=== PATIENT | female | born 1990 | race Caucasian/White ===

== ENCOUNTER 2020-02-10 10:41 | Day surgery (SDC) | payer OTHER ==
[~2020-02-10] VITALS: Ht 177.8 cm; Wt 70.3 kg
[2020-02-10] VITALS (9 sets, daily range): BP systolic 101–111; BP diastolic 59–68
[~2020-02-10 10:41] MED LIST: Bacitracin 50000 Units Vial ONE; EPINEPHrine 1mg/1ml Amp ONE; Lidocaine 1% 10mg/ml/Epi 0.005mg/ml 30ml vial INJ ONE
--- NOTE | 2020-02-10 11:08 | Pre-Procedure Note/Attestation ---
Pre-Procedure Note/Attestation Complete Prior to Procedure Planned Procedure: left Procedure Narrative: Left thigh groin excision with reconstrution. Attestation I attest that I discussed the nature of the procedure; its benefits; risks and complications; and alternatives (and the risks and benefits of such alternatives ), prior to the procedure, with the patient (or the patient's legal mortician supplies sales representative). I attest that, if there was a reasonable possibility of needing a blood transfusion, the patient (or the patient's legal mortician supplies sales representative) was given the [facility] standardized written summary, pursuant to the [place] Blood Safety Act ([place] Health and Safety Code # 1645, as amended). I attest that I re-evaluated the patient just prior to the surgery and that there has been no change in the patient's H&P, except as documented below: Randi Urban MD Feb 10, 2020 11:08
[2020-02-10] MEDS ORDERED: DAYSEE 0.15-0.1 EACH PO (11:10)
[2020-02-10] MEDS ORDERED: LR 1000ml ONE (12:00)
[2020-02-10] MEDS ORDERED: Bacitracin Oint 15gm Tube TOPIC ONE (12:00)
[2020-02-10] MEDS ORDERED: Sterile Water Irrig 1000ml IRRIG ONE (12:00)
[2020-02-10] MEDS ORDERED: fentaNYL 100 mcg/2 mL IV ONE (12:14)
[2020-02-10] MEDS ORDERED: NS Irrig 1000ml IRRIG ONE (12:37)
[2020-02-10] MEDS ORDERED: Lidocaine 1% MPF 10mg/ml 5ml ONE (12:50)
--- NOTE | 2020-02-10 12:58 | Anethesia Preoperative Eval ---
Anesthesia Pre-op PMH/ROS General Date of Evaluation: Feb 10, 2020 Time of Evaluation: 12:08 Anesthesiologist: Lexie ASA Score: ASA 1 Mallampati Score Class I : Soft palate, uvula, fauces, pillars visible Class II: Soft palate, uvula, fauces visible Class III: Soft palate, base of uvula visible Class IV: Only hard plate visible Mallampati Classification: Class I Surgeon: Rajni Diagnosis: Hidradenitis Suppuritiva Surgical Procedure: Left Thigh Excision Anesthesia History: none Family History: no anesthesia problems Allergies: Coded Allergies: CLARITHROMYCIN (Verified Allergy, Intermediate, hives, 02/10/20) Medications: see eMAR Patient NPO?: Yes Anesthesia Pre-op Phys. Exam Physician Exam Last Vital Signs Date Time Temp Pulse Resp B/P (MAP) Pulse Ox O2 Delivery O2 Flow Rate FiO2 02/10/20 11:27 Room Air 02/10/20 11:26 97.5 51 18 111/63 100 Constitutional: NAD Neurologic: CN 2-12 intact Cardiovascular: RRR Respiratory: CTA Gastrointestinal: S/NT/ND Airway Exam Mallampati Score: Class I MO: full ROM: full Teeth: intact Anesthesia Pre-op A/P Labs Urine Test Test 02/10/20 10:50 Urine HCG, Qualitative Negative (NEGATIVE) Risk Assessment & Plan Assessment: ASA 1 Plan: TIVA Status Change Before Surgery: No Pre-Antibiotics Dru Gram Ancef IV Given Within 1 Hr of Incision: Yes Time Given: 12:21 Enzo Owen MD Feb 10, 2020 12:58
--- NOTE | 2020-02-10 12:58 | Immediate Post-Op Evaluation ---
Immediate Post-Op Evalulation Immediate Post-Op Evalulation Procedure: Left Thigh Excision Date of Evaluation: Feb 10, 2020 Time of Evaluation: 13:40 IV Fluids: 900 LR Blood Products: 0 Estimated Blood Loss: 10 Urinary Output: 0 Blood Pressure Systolic: 108 Blood Pressure Diastolic: 67 Pulse Rate: 64 Respiratory Rate: 16 O2 Sat by Pulse Oximetry: 98 Temperature (Fahrenheit): 97.2 Pain Score (1-10): 2 Nausea: No Vomiting: No Complications 0 Patient Status: awake, reacts, patent, none Hydration Status: adequate Dru Gram Ancef IV Given Within 1 Hr of Incision: Yes Time Given: 12:21 Enzo Owen MD Feb 10, 2020 12:58
--- NOTE | 2020-02-10 12:59 | 48 Hour Post Anesthesia Eval ---
Post Anesthesia Evaluation Procedure: Left Thigh Excision Date of Evaluation: Feb 10, 2020 Time of Evaluation: 15:53 Blood Pressure Systolic: 102 0: 56 Pulse Rate: 67 Respiratory Rate: 18 Temperature (Fahrenheit): 98 O2 Sat by Pulse Oximetry: 100 Airway: patent Nausea: No Vomiting: No Pain Intensity: 2 Hydration Status: adequate Cardiopulmonary Status: Stable Mental Status/LOC: patient returned to baseline Follow-up Care/Observations: 0 Post-Anesthesia Complications: 0 Follow-up care needed: ready to discharge Enzo Owen MD Feb 10, 2020 12:59
[2020-02-10] MEDS ORDERED: Flumazenil 0.5mg/5ml Inj IV ONE (13:00)
[2020-02-10] MEDS ORDERED: Acetaminophen (Non formulary) 100 ML IV ONE (13:00)
[2020-02-10] MEDS ORDERED: HYDROcodone/Acetamin 5/325 tab ORAL PRN (13:20)
[2020-02-10] MEDS ORDERED: fentaNYL 100 mcg/2 mL IV PRN (13:20)
[2020-02-10] MEDS ORDERED: Hydromorphone 0.5mg/0.5ml inj IVP PRN (13:20)
[2020-02-10] MEDS ORDERED: HYDROcodone/Acetamin 7.5/325 tab ORAL PRN (13:21)
[2020-02-10] MEDS ORDERED: Ketorolac 30mg Inj IV PRN ×2 (13:21)
[2020-02-10] MEDS ORDERED: Atropine Sulfate 0.4mg/ml inj IVP PRN (13:22)
[2020-02-10] MEDS ORDERED: DiphenhydrAMINE 50mg/ml Inj IVP PRN (13:22)
[2020-02-10] MEDS ORDERED: oxyCODONE HCL/Acetaminophen 5/325mg ORAL PRN (13:22)
[2020-02-10] MEDS ORDERED: Labetalol 5mg/ml 20ml vial IV PRN (13:22)
[2020-02-10] MEDS ORDERED: LORazepam Inj 2mg/ml 1ml IV PRN (13:23)
[2020-02-10] MEDS ORDERED: Midazolam 2mg/2ml Inj IVP PRN (13:23)
[2020-02-10] MEDS ORDERED: Metoclopramide 10mg/2ml Inj IVP PRN (13:23)
[2020-02-10] MEDS ORDERED: Meperidine 25mg/0.5ml Inj (FOR RIGORS ONLY) IV PRN (13:24)
[2020-02-10] MEDS ORDERED: LR 1000ml 1,000 ML IVLG SCH (13:24)
--- NOTE | 2020-02-10 13:28 | Operative Note - PDOC ---
Operative Note Operative Note Chief Complaint: Recurrent HS in left thigh Procedure: Excision of left thigh HS with reconstruction Post-op Diagnosis: same as pre-op Surgeon: Rajni Anesthesia: general Specimen: yes Complications: none Condition: stable Estimated Blood Loss: minimal Drains: none Implant(s) used?: No Randi Urban MD Feb 10, 2020 13:28
--- NOTE | 2020-02-10 21:45 | Operative Note - Dictated ---
DATE OF OPERATION: 02/10/2020 PREOPERATIVE DIAGNOSIS: Recurrent hidradenitis suppurativa in left upper thigh region. POSTOPERATIVE DIAGNOSIS: Recurrent hidradenitis suppurativa in left upper thigh region. PROCEDURE: 1. Excision of recurrent hidradenitis suppurativa in left upper groin. 2. Complex closure of wound resulting from excision of hidradenitis measuring 7 x 2.5 cm. SURGEON: Randi Urban MD. ANESTHESIA: Local with sedation. ESTIMATED BLOOD LOSS: Minimal. COMPLICATIONS: None. DISPOSITION: Stable to the recovery room. SPECIMEN: Left thigh tissue, rule out hidradenitis suppurativa. INDICATIONS FOR SURGERY: This is a 29-year-old female with a known history of hidradenitis suppurativa who I saw in my office last month with what appeared to be recurrent hidradenitis suppurativa in her left upper groin. She had been seen by her cold storage superintendent who had been treating her and performed a local excision of the disease; however, on my exam at that time, it appeared that there was a recurrence at the site of the excision. In my assessment, I felt that it was an incomplete excision potentially, which is why we discussed that a potential re-excision with wider margins will be prudent at this time. She understood this plan and agreed to proceed. She was consented to undergo excision of the left thigh region bearing the hidradenitis with reconstruction. She understood the risks and benefits of surgery and agreed to proceed. DETAILS OF THE OPERATION: Patient was brought to the operating room and laid in the supine position on the operating table. Her left leg was placed in a frog-leg position and the area of the hidradenitis was prepped and draped in a sterile and usual fashion. This was in the upper thigh region as well as the perineal region, which required the prep. The patient was given sedation with Versed and propofol. I administered a total of 25 mL of lidocaine with epinephrine in and around the region of the disease. After 5 minutes elapsed, the patient was comfortable with sedation. A #15 blade was used to make the elliptical incision around the disease bearing tissue and around the old scar. Electrocautery was then used to further dissect down to the plane into the deep fat layer to completely excise the disease bearing tissue. This resulted in a defect that measures 7 x 2.5 cm. I felt that it was going to be under tension if it was closed as is. As such, skin flaps were elevated on both sides to allow for a tension-free repair. A skin hook was used to elevate the skin flap on the superior medial edge of the wound. In a similar fashion, electrocautery was used to raise an inferolateral skin flap to allow for closure of the defect without tension. Once these flaps were elevated, the wound was copiously irrigated with normal saline and once hemostasis was achieved, a layered closure was pursued bringing the skin flaps together using 2-0 Vicryl sutures for the deep layer as well as a 3-0 Monocryl suture for the subcuticular layer. This was further reinforced with several interrupted 3-0 Prolene sutures with Dermabond on top of that to further secure the repair. Bulky dressings were applied. There were no complications and the patient tolerated the procedure well. Randi Urban M.D. DR: DUSTY JOB#: [id number] CC:
== END 2020-02-10 14:40 | disposition home or self-care (01) ==
LOC: SUR 10:41
DX: L73.2 Hidradenitis suppurativa (principal); Z88.8 Allergy status to other drugs, medicaments and biological substances
CPT/HCPCS: 11471; 81025; 94003; J0690; J2250; J2704; J3010; J7120; 94150